=== PATIENT | female | born 1975 | race Caucasian/White ===

== ENCOUNTER 2018-05-12 15:04 | Emergency (ER) | payer SELFPAY ==
[2018-05-12 15:08] VITALS: BP 122/68; PULSE 89; TEMP 98.2; BMI 25.0
[2018-05-12] MEDS ORDERED: IBUPROFEN 600 MG TABLET (FP) PO ONE ×2 (15:51→16:01)
[2018-05-12] MEDS ORDERED: RANITIDINE HCL 150 MG TABLET (FP) PO ONE (15:51)
[2018-05-12] MEDS ORDERED: ONDANSETRON 4 MG TABLET PO ONE ×2 (15:51→16:00)
[2018-05-12] MEDS ORDERED: RANITIDINE HCL 150 MG TABLET (FP) ONE (16:01)
--- NOTE | 2018-05-12 16:13 | PDOC ---
History of Present Illness - General Chief Complaint: Respiratory Stated Complaint: COLD SYMPTOMS Time Seen by Provider: 05/12/18 15:14 History Source: Patient Exam Limitations: No Limitations - History of Present Illness Initial Comments: 05/12/18 16:08 42yo F w/ no sig PMHx comes in c/o 2 days of flu-like symptoms with runny nose, nasal congestion, dry cough with pleuritic chest pain, malaise, bodyaches, fever 100.5, abdominal discomfort, nausea, NBNB diarrhea, 3x/day, (+)decrease in PO intake, decrease in urination, (+)sick contacts with the flu, no recent travel. pt did not take her flu shot this year. Past History - Past Medical History Allergies/Adverse Reactions: Allergies Allergy/AdvReac Type Severity Reaction Status Date / Time No Known Allergies Allergy Verified 05/12/18 15:08 Home Medications: Ambulatory Orders Ibuprofen 600 mg PO TID 3 Days #18 tablet 05/12/18 Oseltamivir Phosphate [Tamiflu] 75 mg PO BID 5 Days #10 capsule 05/12/18 Pseudoephedrine HCl [Sudafed] 60 mg PO TID 3 Days #15 tablet 05/12/18 Sodium Chloride [Saline Nasal Sawyer] 30 ml NS QID 7 Days #1 bottle 05/12/18 COPD: Yes - Suicide/Smoking/Psychosocial Hx Smoking History: Never smoked Review of Systems - Review of Systems Able to Perform ROS?: Yes Constitutional: Yes: Fever, Malaise. No: Chills, Night Sweats HEENTM: Yes: Throat Pain. No: Eye Pain, Recent change in vision Respiratory: Yes: Cough. No: Shortness of Breath Cardiac (ROS): No: Palpitations, Chest Tightness ABD/GI: Yes: Diarrhea, Nausea, Abdominal cramping. No: Vomiting : No: Dysuria, Hematuria Musculoskeletal: No: Back Pain Integumentary: No: Rash Neurological: No: Headache, Numbness, Dizziness Psychiatric: Yes: Change in Appetite Endocrine: No: Unexplained Weight Loss *Physical Exam - Vital Signs Last Vital Signs Temp Pulse Resp BP Pulse Ox 98.2 F 89 18 122/68 98 05/12/18 15:06 05/12/18 15:06 05/12/18 15:06 05/12/18 15:06 03/03/19 15:06 - Physical Exam General Appearance: Yes: Nourished, Other (ill appearing) HEENT: positive: DOMINIC, Normal Voice, Pharyngeal Erythema, Nasal Congestion, Rhinorrhea. negative: Pale Conjunctivae, Scleral Icterus (R), Scleral Icterus ( L), Tonsillar Erythema, TM Erythema Neck: positive: Supple. negative: Tender, Decreased range of motion, Stridor, Tender midline Respiratory/Chest: positive: Chest Tender, Lungs Clear, Normal Breath Sounds. negative: Respiratory Distress, Accessory Muscle Use Cardiovascular: positive: Regular Rhythm, Regular Rate Gastrointestinal/Abdominal: positive: Normal Bowel Sounds, Tender (mild epigastric tenderness, no tenderness at the RLQ, no macburney's tenderness, (-) wang's), Soft Musculoskeletal: positive: Normal Inspection. negative: CVA Tenderness, Decreased Range of Motion Extremity: positive: Normal Capillary Refill, Normal Inspection, Normal Range of Motion. negative: Tender, Pedal Edema Integumentary: positive: Normal Color, Dry. negative: Jaundice, Rash Neurologic: positive: Fully Oriented, Alert, Normal Mood/Affect Moderate Sedation - Procedure Monitoring Vital Signs: Procedure Monitoring Vital Signs Temperature 98.2 F 05/12/18 15:06 Pulse Rate 89 05/12/18 15:06 Respiratory Rate 18 05/12/18 15:06 Blood Pressure 122/68 05/12/18 15:06 O2 Sat by Pulse Oximetry (%) 98 05/12/18 15:06 ED Treatment Course - ADDITIONAL ORDERS Additional order review: Laboratory Results 05/12/18 15:56 Urine HCG, Qual Negative - Medications Given in the ED: ED Medications Discontinued Medications Generic Name Dose Route Start Last Admin Trade Name Terryq PRN Reason Stop Dose Admin Ondansetron HCl 4 mg 05/12/18 15:51 05/12/18 16:07 Zofran - PO 05/12/18 15:52 4 mg ONCE ONE Administration Medical Decision Making - Medical Decision Making 05/12/18 16:12 42 yo w/ likely influenza infection, will give motrin, zofran, zantac, will check for the flu, and will hydrate her. UA/UCG ordered 05/12/18 16:59 (+)Flu, pt urinated twice in the ED. Will discharge with tamiflu, motrin sudafed and PMD follow up Encourage PO fluids intake Return for worsening/concerning symptoms Pt verbalizes understanding and agrees with plan. *DC/Admit/Observation/Transfer Diagnosis at time of Disposition: Influenza A - Discharge Dispostion Disposition: HOME Condition at time of disposition: Stable - Prescriptions Prescriptions: Ibuprofen 600 mg PO TID 3 Days #18 tablet Oseltamivir Phosphate [Tamiflu] 75 mg PO BID 5 Days #10 capsule Pseudoephedrine HCl [Sudafed] 60 mg PO TID 3 Days #15 tablet Sodium Chloride [Saline Nasal [place]yer] 30 ml NS QID 7 Days #1 bottle - Referrals - Patient Instructions Printed Discharge Instructions: DI for Influenza -- Adult Additional Instructions: Rest and drink plenty of fluids. Take Tamiflu for 5 days, take motrin and sudafed as needed for pain, fever and congestion. Follow up with your PMD. Return for worsening/concerning symptoms - Post Discharge Activity
[2018-05-12 17:13] LABS: URINE APPEARANCE SLCLOUDY; URINE BILIRUBIN NEGATIVE (<2.0 mg/dL); URINE COLOR AMBER; URINE GLUCOSE (UA) NEGATIVE (NEGATIVE); URINE KETONE TRACE (NEGATIVE); URINE LEUK ESTERASE NEGATIVE (NEGATIVE); URINE NITRITE NEGATIVE (NEGATIVE); URINE PROTEIN 1+ (NEGATIVE); URINE UROBILINOGEN NEGATIVE mg/dL (0.2-1.0)
[2018-05-12 17:39] LABS: EPI CELLS RARE /HPF (FEW); URINE HYALINE CAST 3 /lpf; URINE MUCUS MANY
== END 2018-05-12 17:34 | disposition home or self-care (01) ==
LOC: JERFT 15:04
DX: J09.X2 Influenza due to identified novel influenza A virus with other respiratory manifestations (principal)
CPT/HCPCS: 81003; 81015; 84703; 87804; 99281-25